=== PATIENT | male | born 1965 | race Caucasian/White ===

== ENCOUNTER 2024-10-18 12:36 | Outpatient (CLI) | payer OTHER, SELFPAY ==
--- NOTE | 2024-10-18 13:09 | ECG_ITS ---
APPROVED REPORT Exam: Resting ECG HR:70 bpm ECG Measurements Heart Rate 70 AXES NE 135 P 3 QRSd 111 QRS 7 QT 381 T 38 QTc 402 Conclusion SINUS RHYTHM LOW QRS VOLTAGE IN PRECORDIAL LEADS [QRS DEFLECTION < 1.0 mV IN CHEST LEADS] INCOMPLETE RIGHT BUNDLE BRANCH BLOCK [90+ ms QRS DURATION, TERMINAL R IN V1/V2, 40+ ms S IN I/aVL/V4/V5/V6] BORDERLINE ECG UNCONFIRMED REPORT Electronically signed by : Anjum Jewell MD 10/20/2024 06:41:13
[2024-10-18 13:21] LABS: Microscopic, Urine URINE MICROSCOPIC (MICROSCOPIC)
[2024-10-18 13:24] LABS: Basophils # 0.1 K/mm3 (0-0.2); Basophils % 0.7 % (0.1-2.0); Eosinophils # 0.3 Kmm3 (0.0-0.4); Eosinophils % 3.2 % (0.1-12.0); Hematocrit 49.2 % (42.0-52.0); Hemoglobin 16.4 g/dL (14.1-18.0); Immature Granulocytes # 0.03 10^3uL; Immature Granulocytes % 0.4 %; Lymphocytes # 2.4 K/mm3 (0.7-4.5); Lymphocytes % 28.7 % (10-50); Mean Corpuscular HGB Conc 33.3 g/dL (31.8-35.4); Mean Corpuscular Hemoglobin 31.2 pg (27.0-31.2); Mean Corpuscular Volume 93.7 fl (80-94); Mean Platelet Volume 9.6 fl (7.4-10.4); Monocytes # 0.7 K/mm3 (0.1-1.0); Monocytes % 7.7 % (1.7-9.3); Neutrophils % 59.3 % (37.0-80.0); Nucleated Red Blood Cells # 0 10^3/uL; Nucleated Red Blood Cells % 0 %; Platelet Count 265 K/mm3 (142-424); Red Blood Count 5.25 M/mm3 (4.60-6.20); Red Cell Distribution Width-SD 44.9 fL; White Blood Count 8.4 K/mm3 (4.8-10.8)
[2024-10-18 13:33] LABS: Chloride 109 mmol/L (98-107); Potassium 4.2 mmoL/L (3.5-5.1); Sodium 136 mmol/L (136-145)
[2024-10-18 13:35] LABS: Appearance,Urine CLEAR (Clear); Bilirubin,Urine Negative (Negative); Blood, Urine 1+ (Negative); Color,Urine YELLOW (Yellow); Glucose,Urine (UA) Negative (Negative); Ketones,Urine Negative (Negative); Leukocyte Esterase,Urine Negative (Negative); Nitrate,Urine Negative (Negative); Protein,Urine Negative (Negative); Urobilinogen,Urine 0.2 EU/dl (0.2)
[2024-10-18 13:36] LABS: Anion Gap 8.2 mEq/L (5-15); Blood Urea Nitrogen 15 mg/dl (9-20); Calcium 9.5 mg/dl (8.4-10.2); Carbon Dioxide 23 mmol/L (22.0-30.0); Estimated Glomerular Filt Rate 99 ml/min (>60); GFR (African American) 120 ML/MIN (>60); Glucose 108 mg/dl (74-100)
[2024-10-18 13:47] LABS: WBC,Urine Occasional #/hpf (0-3)
== END 2024-10-18 23:59 | disposition home or self-care (01) ==
LOC: PREOP 12:41
PROVIDERS: PCP Internal Medicine; Visit Provider Surgery
DX: K40.90 Unilateral inguinal hernia, without obstruction or gangrene, not specified as recurrent (principal); I45.19 Other right bundle-branch block; R94.31 Abnormal electrocardiogram [ECG] [EKG]
CPT/HCPCS: 80048; 81001; 85025; 93005

== ENCOUNTER 2024-10-31 06:11 | Day surgery (SDC) | payer OTHER, SELFPAY ==
[2024-10-30 11:36] VITALS: BMI 34.4
[2024-10-31] VITALS (9 sets, daily range): BP systolic 91–149; BP diastolic 51–96; PULSE 63–75; RESP 16–18; TEMP 36.4–38; O2SAT 94–98
--- NOTE | 2024-10-31 06:42 | P.HP_ITS ---
HPI HPI HPI: This is a 59-year-old gentleman who presents for evaluation regarding umbilical hernia. Over the past few months he has noticed a complex bulge at the umbilicus. No definitive pain. No history of incarceration. He does express concern and states it just bothers me . [facility] Disclaimer: The information contained in this section may have been updated after the patient was seen, as this information can be updated by other users. Medical History (Updated 10/18/24 @ 12:52 by Haris Mcclellan RN) No significant past medical history Surgical History (Updated 10/18/24 @ 12:53 by Haris Mcclellan RN) History of colon resection Family History (Updated 10/18/24 @ 12:53 by Haris Mcclellan RN) No significant family history Social History (Updated 10/18/24 @ 12:54 by Haris Mcclellan RN) Smoking Status: Former smoker alcohol intake: never current occupational status: employed Travel in the last 8 weeks?: Inside the [place] Have you lived/traveled outside US in past 30 days?: No Contact w/someone who lives/traveled outside US past 30 days?: No Exposure to someone with infectious disease in past 14 days?: No Do you have a fever (greater than 100.4 F or 38 C)?: No Have you tested positive for COVID-19?: No Exposed to someone with COVID-19 in past 14 days?: No Do you have a sore throat?: No Do you have a cough?: No Do you have any weakness?: No Do you have any diarrhea?: No Are you experiencing any unusual bleeding?: No Do you have any muscle aches/pain?: No Do you have any abdominal pain?: No Are you experiencing loss of taste or smell?: No Review of Systems Review of Systems Review of systems:: pertinent systems reviewed and negative unless documented below *Gastrointestinal Gastrointestinal: Reports as per HPI Meds Home Medications and Allergies Home Medications ?Medication ?Instructions ?Recorded ?Confirmed ?Type aspirin 81 mg capsule 81 mg PO DAILY 10/18/24 10/18/24 History docosahexaenoic acid (dha)-epa 120 1 cap PO DAILY 10/18/24 10/18/24 History mg-180 mg capsule (Fish Oil) cranberry extract 250 mg tablet 0 mg PO DAILY 10/31/24 10/31/24 History New Prescriptions to Start Prescriptions: Allergies Allergy/AdvReac Type Severity Reaction Status Date / Time No Known Allergies Allergy Verified 10/31/24 06:42 Exam Data for Last 24 hours I & O for Last 24 hours: Intake & Output 10/28/24 10/29/24 10/30/24 10/31/24 11:59 11:59 11:59 11:59 Weight 240 lb Constitutional Constitutional: no acute distress *Routine HEENT Exam Head: Present normocephalic Eye: Present EOMI ENT: Present mucous membranes moist *Routine Neck Exam Neck: Present full ROM *Routine Respiratory Exam Respiratory: Absent respiratory distress *Routine Cardiovascular Exam Cardiovascular: Absent tachycardia *Routine Abdominal Exam Abdominal: Present soft Comments: Complex umbilical defect with chronic incarceration of preperitoneal fat versus omentum *Routine Rectal Exam Rectal:: deferred *Routine Genitalia Exam Genitalia:: deferred *Routine Extremities Exam Extremities: Present full ROM *Routine Skin Exam Skin: Absent erythema *Routine Neurological Exam Neurological: Present alert Assessment and Plan *Assessment and plan (1) Umbilical hernia: Problem Comment: 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
[2024-10-31] MEDS: 0.9 % SODIUM CHLORIDE 1000ML 1,000 ML 25 ML IV (07:00)
[2024-10-31] MEDS: CEFAZOLIN SODIUM 2 GM in 0.9 % SODIUM CHLORIDE 100 ML IV (07:15)
[2024-10-31] MEDS: LIDOCAINE 1% 20ML MDV 20 ML (07:50)
--- NOTE | 2024-10-31 08:06 | P.PNANES_ITS ---
[facility] Disclaimer: The information contained in this section may have been updated after the patient was seen, as this information can be updated by other users. Medical History No significant past medical history Surgical History History of colon resection Family History Other No significant family history Social History (Updated 10/31/24 @ 06:46 by Nina Lopez RN) Smoking Status: Current some day smoker alcohol intake: never substance use type: denies use current occupational status: employed Travel in the last 8 weeks?: Inside the [place] [facility] Anesthesia Checklist Patient Identification Patient Identification: Verbal (Name & ) Structural Data Admitted From: Home Planned Operative Procedure/s: lap umbilical hernia rpr Consent for Planned Operative Procedure(s) Verified: Yes NPO Status Verified Time NPO: 00:00 Additional verifications Anesthesia Reactions: No Hx Blood Transfusions: No Blood Transfusion Reaction: No Airway Assessment Mallampati Score:: Class II C-Spine Mobility Assessed: Yes TMJ Mobility Assessed: Yes Dentition: Good Dentition Neurological Assessment Level of Consciousness: Awake, Alert and Appropriate Anesthesia Plan Anesthesia Risk discussed: Yes Anesthesia Plan: Verified ASA Class: II Anesthesia Type: General w/block
--- NOTE | 2024-10-31 08:56 | P.OP_ITS ---
Date of procedure: 10/31/24 Pre-op Diagnosis:: Umbilical hernia with chronically-incarcerated omentum/preperitoneal fat Post-op Diagnosis:: Same Procedure performed:: Laparoscopic-assisted open umbilical hernia repair (6.4 cm Ventralex mesh) Surgeon:: Rajesh Mosley MD Anesthesia: GETA Estimated blood loss (mL): 15 Operative findings:: 2 cm umbilical defect Large volume chronically-incarcerated omentum/preperitoneal fat Operative note:: After informed consent was obtained the patient was taken to the operating room and placed in the supine position. General anesthesia was induced and his abdomen was prepped and draped in a sterile fashion. After infiltration with local anesthetic a stab incision was made in the left upper quadrant. A Veress needle was placed in position. The abdomen was insufflated. A 5 mm optical trocar was placed along the left mid flank. An additional 5 mm trocar was placed at the Veress needle insertion site. A third 5 mm trocar was placed in the left lower quadrant. A large volume of incarcerated omentum was immediately encountered. Careful blunt dissection was utilized to free the vast majority of the omentum. No obvious bleeding noted. No obvious injury to colon/small bowel noted. An incision was made overlying the defect. Additional incarcerated/transected omentum along with the hernia sac was carefully resected utilizing electrocautery. The remaining defect was noted to be approximately 2 cm in diameter. A 6.4 cm Ventralex mesh was placed in position and secured with interrupted Ethibond. A primary repair with 0 Ethibond was then completed overlying the mesh. The umbilical stump was reapproximated with interrupted Vicryl. Skin was then closed with interrupted 4-0 Monocryl in a subcuticular fashion. The 3 trocars were removed. Skin was closed with 4-0 Monocryl. Dress ings were applied and the patient was transferred recovery in stable condition. Condition: stable Disposition: PACU Specimens:: None Complications:: No immediate
--- NOTE | 2024-10-31 09:13 | EXP.ANES.I ---
[facility] Anesthesia Record Part I Anesthesia Record I Intake, IV Amount: 1,200 Hydration: Adequate Estimated blood loss (mL): 10 Urine output (mL): 0 Blood Pressure: 113/70 SaO2: 94 Pulse Rate: 66 Airway Patency: Patent Respiratory Rate: 18 Temperature: 98 F Patient is:: Awake and Drowsy Stable to PACU at:: 09:15
--- NOTE | 2024-11-05 07:47 | P.PNANES_ITS ---
[facility] Anesthesia Record Part II Anesthesia Record Part II Discharge Time: 09:45 Destination: [facility] PACU nurse assessment reviewed?: Yes Patient Condition:: Good Anesthesia Complications:: None Swallowing reflex intact?: Yes Airway Patency: Patent Cyanosis?: Yes Blood Pressure: 134/91 SaO2: 96 Respiratory Rate: 16 Pulse Rate: 75 Temperature: 97.5 F Mental Status: Alert & Oriented Pain level:: 0 Nausea and/or vomitting:: None Intake, IV Amount: 1,500 Hydration: Adequate
[2024-11-05 07:49] VITALS: BP 134/91
[2024-11-05 07:50] VITALS: PULSE 75; RESP 16; TEMP 36.4; O2SAT 96
== END 2024-10-31 10:06 | disposition home or self-care (01) ==
PROVIDERS: PCP Internal Medicine; Visit Provider Surgery
PROC: 0WQF4ZZ Repair Abdominal Wall, Percutaneous Endoscopic Approach (ICD-10-PCS; CPT 49592; principal; 2024-10-31 07:30)
DX: K42.0 Umbilical hernia with obstruction, without gangrene (principal)
CPT/HCPCS: 49592; 96374; C1781; J0690; J1100; J1200; J2250; J2405; J3010; J7030; J7120